=== PATIENT | female | born 1945 | race Caucasian/White ===

== ENCOUNTER 2022-02-24 14:23 | Emergency (ER) | payer OTHER, BC, MEDICARE ==
[~2022-02-24] VITALS: Ht 170.2 cm; Wt 78.0 kg
[2022-02-24] MEDS ORDERED: IBUP800 PO (15:55)
[2022-02-24] MEDS ORDERED: CRUTCH2 XX (15:55)
[2022-02-24] MEDS ORDERED: HYDR1TAB94 PO (15:55)
== END 2022-02-24 16:20 | disposition home or self-care (01) ==
LOC: ER 14:23
DX: S90.31XA Contusion of right foot, initial encounter (principal); S89.92XA Unspecified injury of left lower leg, initial encounter; V09.9XXA Pedestrian injured in unspecified transport accident, initial encounter
CPT/HCPCS: 73562-LT; 73630; A9270